=== PATIENT | female | born 1980 | race Caucasian/White ===

== ENCOUNTER → 2025-09-19 | Outpatient (CLI) | payer BC, SELFPAY ==
--- NOTE | 2025-09-19 16:45 | XR_ITS ---
Examination: Right hip AP, lateral, AP pelvis 3 views Technique: Hip AP lateral, AP pelvis, 3 views Exam date and time: July 20, 2025, 1723 hours INDICATIONS: Right hip pain beginning 6 months ago. FINDINGS: No right hip fracture or dislocation Left hip bones of the pelvis intact No significant arthritic change IMPRESSION: No hip or pelvic fracture.
== END | disposition home or self-care (01) ==
LOC: CDIM 16:39
PROVIDERS: PCP Emergency Medicine; Referring Provider Chiropractor; Visit Provider Chiropractor
DX: M25.551 Pain in right hip (principal)
CPT/HCPCS: 73502